=== PATIENT | male | born 1960 | race Caucasian/White ===

== ENCOUNTER 2018-09-15 18:44 | Emergency (ER) | payer OTHER ==
[~2018-09-15] VITALS: Ht 165.1 cm; Wt 66.3 kg
[2018-09-15 18:50] VITALS: BP 130/62
--- NOTE | 2018-09-15 20:08 | NUR ---
PT TAKEN TO BED 4
--- NOTE | 2018-09-15 20:10 | NUR ---
ASSUMED CARE OF PT AT THIS TIME. PT PRESENTS FOR REFILL OF ALBUTEROL. NO RESPIRATORY DISTRESS NOTED...PT SPEAKS IN FULL SENTENCES. PT DENIES ANY OTHER MEDICAL COMPLAINTS AT THIS TIME. AAOX4 WITH EVEN AND STEADY GAIT; PATIENT STATES PAIN OF 0/10; VSS; PATIENT POSITIONED FOR COMFORT; HOB ELEVATED; BEDRAILS UP X2; BED DOWN. ER MD MADE AWARE OF PT STATUS. WILL CONTINUE TO MONITOR.
--- NOTE | 2018-09-15 20:48 | NUR ---
Dr. Villasenor evaluating patient at bedside.
[2018-09-15] MEDS ORDERED: ALBUTEROL SULFATE/IPRATROPIU 3 ML SOL IH ONE (20:55)
--- NOTE | 2018-09-15 21:02 | NUR ---
Respiratory Therapist at bedside for respiratory intervention.
[2018-09-15 21:15] VITALS: BP 132/61
== END 2018-09-15 21:15 | disposition home or self-care (01) ==
LOC: MED 18:44
DX: J45.909 Unspecified asthma, uncomplicated (principal)
CPT/HCPCS: 94640; 94760; 99283; J7620

== ENCOUNTER 2018-12-05 22:25 | Emergency (ER) | payer OTHER ==
[~2018-12-05] VITALS: Ht 167.6 cm; Wt 63.5 kg
[2018-12-05 22:40] VITALS: BP 133/75
--- NOTE | 2018-12-05 22:41 | NUR ---
TO ER BED 8
[2018-12-05] MEDS ORDERED: ALBUTEROL 0.083% 2.5 MG/3 ML NEBU INH ONE ×2 (22:45→23:40)
[2018-12-05] MEDS ORDERED: predniSONE 20 MG TAB PO ONE (22:45)
[2018-12-05] MEDS ORDERED: ALBUTEROL SULFATE/IPRATROPIU 3 ML SOL IH ONE ×2 (22:45→23:40)
--- NOTE | 2018-12-05 23:00 | NUR ---
PT C/O DIFFICULTY BREATHING STARTING AT 5AM THIS MORNING. USED INHALER WITHOUT RELIEF. 98% ON RA. RESPIRATIONS E/U, NO RETRACTIONS NOTED, LUNG SOUNDS CLEAR BILAT THROUGHOUT. NO DIAPHORESIS NOTED.
--- NOTE | 2018-12-06 00:41 | NUR ---
Patient discharged with v/s stable. Written and verbal after care instructions given and explained. Patient alert, oriented and verbalized understanding of instructions. Ambulatory with steady gait. All questions addressed prior to discharge. ID band removed. Patient advised to follow up with PMD. Rx of ALBUTEROL AND PREDNISONE given. Patient educated on indication of medication including possible reaction and side effects. Opportunity to ask questions provided and answered.
[2018-12-06 00:42] VITALS: BP 119/61
== END 2018-12-06 00:42 | disposition home or self-care (01) ==
LOC: MED 22:25
DX: J45.901 Unspecified asthma with (acute) exacerbation (principal); Z98.890 Other specified postprocedural states
CPT/HCPCS: 94640; 94760; 99284; J7512; J7613; J7620

== ENCOUNTER 2019-01-01 21:42 | Emergency (ER) | payer OTHER ==
[~2019-01-01] VITALS: Ht 167.6 cm; Wt 63.5 kg
[2019-01-01 21:59] VITALS: BP_SYST 114; BP_DIAS 2; BP_DIAS 72
--- NOTE | 2019-01-01 22:03 | NUR ---
AMBULATED TO LOBBY WITH VSS. NO RESPIRATORY DISTRESS NOTED AT THIS TIME.
--- NOTE | 2019-01-01 22:32 | NUR ---
PT AMBULATED TO BED 02.
--- NOTE | 2019-01-01 22:40 | NUR ---
58 YO M BIB SELF PRESENTS TO ED C/O SOB SINCE THIS MORNING. PT REPORTS HX OF ASTHMA AND STATES HE TOOK HIS ALBUTEROL INH AT 1430 AND AGAIN AT 2000. HE STATES IT DID NOT HELP AND HE CONTINUES TO FEEL SOB. -- PT IS AWAKE, ALERT, CALM, COOPERATIVE, BEHAVIOR APPROPRIATE. -- SP02: 95% ON RA. SKIN PINK, WARM, DRY. BREATHING EVEN, UNLABORED. -- INSPIRATORY WHEEZES HEARD THROUGHOUT. PMH-- DENIES RX-- ALBUTEROL INH
[2019-01-01] MEDS ORDERED: predniSONE 20 MG TAB PO ONE (23:20)
[2019-01-01] MEDS ORDERED: ALBUTEROL SULFATE/IPRATROPIU 3 ML SOL IH ONE (23:20)
--- NOTE | 2019-01-01 23:30 | NUR ---
RT AT BEDSIDE.
--- NOTE | 2019-01-02 00:10 | NUR ---
PT REPORTS FEELING BETTER AND IMPROVED BREATHING. BREATHING TX AND PREDNISONE EFFECTIVE. LUNGS CTA THROUGHOUT. SP02:97% ON RA.
[2019-01-02 00:20] VITALS: BP 112/67
--- NOTE | 2019-01-02 00:20 | NUR ---
Patient discharged with v/s stable. Written and verbal after care instructions given and explained. Patient alert, oriented and verbalized understanding of instructions. Ambulatory with steady gait. All questions addressed prior to discharge. ID band removed. Patient advised to follow up with PMD in 1-2 days and to return to ER if S/SX worsen. Rx of Albuterol Inh and Prednisone given. Patient educated on indication of medication including possible reaction and side effects. Opportunity to ask questions provided and answered.
== END 2019-01-02 00:20 | disposition home or self-care (01) ==
LOC: MED 21:42
DX: R06.02 Shortness of breath (principal); J45.909 Unspecified asthma, uncomplicated; Z85.46 Personal history of malignant neoplasm of prostate
CPT/HCPCS: 94640; 99283; J7512; J7620

== ENCOUNTER 2019-01-24 06:18 | Emergency (ER) | payer OTHER ==
[~2019-01-24] VITALS: Ht 167.6 cm; Wt 63.5 kg
[2019-01-24 06:22] VITALS: BP 109/64
--- NOTE | 2019-01-24 06:22 | NUR ---
TO BED # 04 AMBULATORY
[2019-01-24] MEDS ORDERED: ALBUTEROL SULFATE/IPRATROPIU 3 ML SOL IH STA (06:30)
--- NOTE | 2019-01-24 06:33 | NUR ---
BIB self reports waking up with SOB, states he tried his rescue inhaler without any help. Wheezing heard in bilater upper lobes. spo2 97% on RA. Patient does not appear to have labored breathing at this time. Sitting up in bed, speaking in full sentences. ermd aware.
--- NOTE | 2019-01-24 06:45 | NUR ---
RT AT BEDSIDE.
--- NOTE | 2019-01-24 07:20 | NUR ---
report given to day shift rnbetito. patient stable at time
--- NOTE | 2019-01-24 07:21 | NUR ---
report recieved from radha steele.
--- NOTE | 2019-01-24 07:25 | NUR ---
respirations even and unlabored. lungs clear bilaterally. pt [id number].
[2019-01-24] MEDS ORDERED: MAG SULF 2000 MG/WATER PREMIX 50 ML IV ONE (07:35)
[2019-01-24] MEDS ORDERED: methylPREDNISolone SS 125 MG/2 ML VIAL IVP ONE (07:35)
[2019-01-24 08:10] LABS: BASOPHILS % (AUTO) 0.4 % (0.0-2.0); EOSINOPHILS # (AUTO) 0.4 K/uL (0-0.4); EOSINOPHILS % (AUTO) 7.6 % (0.0-4.0); HEMATOCRIT 41.9 % (36-52); HEMOGLOBIN 13.9 g/dL (12.0-18.0); LYMPHOCYTES # (AUTO) 1.2 K/uL (2.0-11.5); LYMPHOCYTES % (AUTO) 24.7 % (20.5-51.1); MEAN CORPUSCULAR HEMOGLOBIN 28 pg (27-31); MEAN CORPUSCULAR HGB CONC 33 g/dL (33-37); MEAN CORPUSCULAR VOLUME 85.2 fL (80-94); MONOCYTES # (AUTO) 0.4 K/uL (0.8-1.0); MONOCYTES % (AUTO) 8.7 % (1.7-9.3); NEUTROPHILS # (AUTO) 2.8 K/uL (1.8-7.7); NEUTROPHILS % (AUTO) 58.6 % (42.2-75.2); PLATELET COUNT (AUTO) 348 K/uL (140-450); RED BLOOD CELL COUNT(AUTO) 4.92 MIL/uL (4.20-6.10); WHITE BLOOD COUNT (AUTO) 4.8 K/uL (4.8-10.8)
--- NOTE | 2019-01-24 08:22 | NUR ---
PT PLACED ON PULSE OX. PT 02 AT 99% RA.
[2019-01-24 08:23] LABS: ANION GAP 11.6 (8-16); CARBON DIOXIDE 28.8 mmol/L (21-32); POTASSIUM 4.4 mmol/L (3.5-5.1); PROTHROMBIN TIME 9.7 secs (10.8-13.4)
[2019-01-24 08:47] LABS: D-DIMER < 100 ng/ml (0-400)
[2019-01-24 08:50] LABS: TOTAL BILIRUBIN 0.7 mg/dL (0.0-1.0)
[2019-01-24 08:51] LABS: ALBUMIN 3.5 g/dL (3.4-5.0)
--- NOTE | 2019-01-24 10:17 | NUR ---
PAIN 0/10 AT THIS TIME
[2019-01-24 10:18] VITALS: BP 110/61
--- NOTE | 2019-01-24 10:18 | NUR ---
Patient discharged with v/s stable. Written and verbal after care instructions given and explained. Patient alert, oriented and verbalized understanding of instructions. Ambulatory with steady gait. All questions addressed prior to discharge. ID band removed. Patient advised to follow up with PMD. Rx of azithromycin, albuterol inhalation aerosol, prednisone given. Patient educated on indication of medication including possible reaction and side effects. Opportunity to ask questions provided and answered. pt given excuse from work.
== END 2019-01-24 10:18 | disposition home or self-care (01) ==
LOC: MED 06:18
DX: J44.1 Chronic obstructive pulmonary disease with (acute) exacerbation (principal); Z85.46 Personal history of malignant neoplasm of prostate; Z98.890 Other specified postprocedural states; Z86.718 Personal history of other venous thrombosis and embolism; Z86.711 Personal history of pulmonary embolism
CPT/HCPCS: 36415; 36600; 80053; 82803; 83735; 83880; 84484; 85025; 85379; 85610; 93005; 94640; 96365; 96366; 96375; 99284; J2930; J3475; J7620

== ENCOUNTER 2019-02-10 20:52 | Emergency (ER) | payer OTHER ==
[~2019-02-10] VITALS: Ht 167.6 cm; Wt 63.5 kg
[2019-02-10 20:55] VITALS: BP 120/71
[2019-02-10] MEDS ORDERED: ALBUTEROL SULFATE/IPRATROPIU 3 ML SOL IH ONE ×2 (21:00→22:15)
[2019-02-10] MEDS ORDERED: methylPREDNISolone SS 125 MG/2 ML VIAL IM ONE (21:00)
--- NOTE | 2019-02-10 21:00 | NUR ---
58 YO M BIB SELF PRESENTS TO ED C/O SOB SINCE THIS AM. PT REPORTS HX OF ASTHMA. PT STATES HE USED HIS ALBUTEROL INH X 4 WITH NO IMPROVEMENT. -- PT AWAKE, ALERT, CALM, COOPERATIVE. ANSWERING QUESTIONS APPROPRIATELY WITH AGE APPROPRIATE BEHAVIOR. -- BREATHING EVEN, UNLABORED. CHEST RISE EQUAL, SYMETRICAL. NO RETRACTIVE BREATHING NOTED. NO ACCESSORY MUSCLE USE NOTED. NO NASAL FLARING. SKIN PINK, WARM, DRY. SPO2: 95% ON RA. PMH-- ASTHMA RX-- ALBUTEROL INH NEEDED Addendum: 02/10/19 at 2146 by [facility] -- INSPIRATORY AND EXPIRATORY WHEEZING HEARD THROUGHOUT.
--- NOTE | 2019-02-10 21:15 | NUR ---
RT CALLED FOR BREATHING TX. AWAITING AVAILABLE RT.
--- NOTE | 2019-02-10 21:40 | NUR ---
Respiratory Therapist at bedside for respiratory intervention.
--- NOTE | 2019-02-10 22:15 | NUR ---
INSPIRATORY WHEEZING HEARD THROUGHOUT LUNG STAPLETON. DR. GRACIA NOTIFIED. ORDERS FOR 2ND BREATHING TX RECEIVED.
--- NOTE | 2019-02-10 22:30 | NUR ---
RT AT BEDSIDE.
--- NOTE | 2019-02-10 22:35 | NUR ---
PT STATES HE FEELS BETTER. LUNGS CTA. SP 02: 99% ON RA.
--- NOTE | 2019-02-10 22:39 | NUR ---
Patient discharged with v/s stable. Written and verbal after care instructions given and explained. Patient alert, oriented and verbalized understanding of instructions. Ambulatory with steady gait. All questions addressed prior to discharge. ID band removed. Patient advised to follow up with PMD. Rx of ALBUTEROL AND PREDNISONE WAS given. Patient educated on indication of medication including possible reaction and side effects. Opportunity to ask questions provided and answered. PT STATED HE WAS ABLE TO BREATH WITHOUT DIFFICULTY POST TREATMENTS, PAIN LEVEL 0/10 PRIOR TO D/C
[2019-02-10 22:51] VITALS: BP 119/69
== END 2019-02-10 22:39 | disposition home or self-care (01) ==
LOC: MED 20:52
DX: J45.901 Unspecified asthma with (acute) exacerbation (principal); Z85.46 Personal history of malignant neoplasm of prostate; Z98.890 Other specified postprocedural states
CPT/HCPCS: 94640; 94760; 96372; 99284; J2930; J7620

== ENCOUNTER 2019-02-15 21:46 | Emergency (ER) | payer OTHER ==
[~2019-02-15] VITALS: Ht 167.6 cm; Wt 63.5 kg
[2019-02-15 21:52] VITALS: BP 117/73
--- NOTE | 2019-02-15 21:52 | NUR ---
TO BED # 03 AMBULATORY
--- NOTE | 2019-02-15 21:58 | NUR ---
Amanda langley in [facility] - 02/15/19 at 2158 by DREAD PT TAKEN TO BED 3
--- NOTE | 2019-02-15 22:00 | NUR ---
58 YO MALE COMES TO ED FOR C/O ASTHMA ATTACK. PT STATES HE FELT SOB, USED INHALER X4 AND STILL FELT SOB. PT DENIES CHEST DISCOMFORT @ THIS TIME. PT AAOX4, SITTING UP IN GURNEY. LUNGS SOUNDS WHEEZING THROUGHOUT. ABD SOFT NON DISTENDED. GURNEY LOCKED IN LOWEST POSITION. HX: ASTHMA RX: INHALER
[2019-02-15] MEDS ORDERED: NACL 0.9% 1,000 ML IV ONE (22:20)
[2019-02-15] MEDS ORDERED: MAG SULF 2000 MG/WATER PREMIX 50 ML IV ONE (22:20)
[2019-02-15] MEDS ORDERED: ALBUTEROL SULFATE/IPRATROPIU 3 ML SOL IH ONE (22:20)
[2019-02-15] MEDS ORDERED: methylPREDNISolone SS 125 MG in WATER STERILE 2 ML IV ONE (22:20)
[2019-02-16 00:25] VITALS: BP 117/82
--- NOTE | 2019-02-16 00:25 | NUR ---
DPatient discharged with v/s stable. Written and verbal after care instructions given and explained BY DR ALVAREZ Patient alert, oriented and verbalized understanding of instructions. Ambulatory with steady gait. All questions addressed prior to discharge BY DR ALVAREZ ID band removed. Patient advised to follow up with PMD. Rx of ALBUTEROL, PREDNISONE given. Patient educated on indication of medication including possible reaction and side effects BY DR ALVAREZ Opportunity to ask questions provided and answered.
== END 2019-02-16 00:25 | disposition home or self-care (01) ==
LOC: MED 21:46
DX: J45.901 Unspecified asthma with (acute) exacerbation (principal); Z85.46 Personal history of malignant neoplasm of prostate; Z98.890 Other specified postprocedural states
CPT/HCPCS: 94640; 96365; 96375; 99283; J2930; J3475; J7030; J7620

== ENCOUNTER 2019-12-06 19:31 | Emergency (ER) | payer SELFPAY ==
[~2019-12-06] VITALS: Ht 165.1 cm; Wt 68.0 kg
[2019-12-06 19:36] VITALS: BP 135/93
--- NOTE | 2019-12-06 19:41 | NUR ---
PT TAKEN TO BED 5
--- NOTE | 2019-12-06 20:02 | NUR ---
Dr. Villasenor examining patient.
[2019-12-06] MEDS ORDERED: AMOXIL/CLAVULANATE 500/125 MG 1 TAB PO ONE (20:10)
[2019-12-06] MEDS ORDERED: KETOROLAC 60 MG/2 ML VIAL IM ONE (20:10)
--- NOTE | 2019-12-06 20:10 | NUR ---
PATIENT COMPLAINS OF LEFT MOLAR TOOTH PAIN X 3 WEEKS. PATIENT STATES HE FINISHED HIS PRESCRIPTION FOR Cephalexin AND TODAY HE FINISHED IT BUT HE STILL HAS ALOT OF PAIN IN THE TOOTH. PATIENT AOX4, BREATHING EVEN AND UNLABORED, SKIN WARM AND DRY. BED IN LOWEST POSITION, LOCKED, BED RAIL UPX1. PMH - ASTHMA ALLERGIES - NKA
[2019-12-06 20:40] VITALS: BP 135/93
--- NOTE | 2019-12-06 20:40 | NUR ---
Patient discharged with v/s stable. Written and verbal after care instructions about abscessed tooth given and explained. Patient alert, oriented and verbalized understanding of instructions. Ambulatory with steady gait. All questions addressed prior to discharge. ID band removed. Patient advised to follow up with PMD. Rx of tramadol, motrin, and augmentin given. Patient educated on indication of medication including possible reaction and side effects. Opportunity to ask questions provided and answered.
== END 2019-12-06 20:40 | disposition home or self-care (01) ==
LOC: MED 19:31
DX: K04.7 Periapical abscess without sinus (principal); J45.909 Unspecified asthma, uncomplicated; Z85.46 Personal history of malignant neoplasm of prostate
CPT/HCPCS: 96372; 99283; J1885

== ENCOUNTER 2019-12-07 20:08 | Emergency (ER) | payer SELFPAY ==
[~2019-12-07] VITALS: Ht 162.6 cm; Wt 67.6 kg
[2019-12-07 20:14] VITALS: BP 157/95
--- NOTE | 2019-12-07 20:17 | NUR ---
NEGATIVE COVID SCREEN. PT WEARING MASK. PT AMBULATED TO BED 11 WITH STEADY GAIT.
--- NOTE | 2019-12-07 20:24 | NUR ---
59 YEAR OLD MALE COMPLAINS OF LEFT MOLAR TOOTH PAIN X 2 DAYS. PATIENT IS COMING BACK TO EMERGENCY ROOM FROM PRIOR VISIT DUE TO PAIN AND UNABLE TO MANAGE PAIN PRIOR TO VISIT TO DENTIST TOMORROW. PATIENT AOX4, BREATHING EVEN AND UNLABORED, SKIN WARM AND DRY. BED IN LOWEST POSITION, LOCKED, BED RAIL UPX1. PMH - ASTHMA, PROSTATE CANCER ALLERGIES - NKA
--- NOTE | 2019-12-07 20:24 | NUR ---
PER DR GAONA DOES NOT NEED EKG
--- NOTE | 2019-12-07 20:24 | NUR ---
Dr. Villasenor examining patient.
[2019-12-07] MEDS ORDERED: MORPHINE SULFATE 2 MG/ML SYR IM ONE (20:25)
[2019-12-07 21:20] VITALS: BP 146/80
--- NOTE | 2019-12-07 21:20 | NUR ---
Patient discharged with v/s stable. Written and verbal after care instructions about dental abscess given and explained. Patient alert, oriented and verbalized understanding of instructions. Ambulatory with steady gait. All questions addressed prior to discharge. ID band removed. Patient advised to follow up with PMD. Rx of norco given. Patient educated on indication of medication including possible reaction and side effects. Opportunity to ask questions provided and answered. Patient stated he is going to have his pick him up when he gets out of hospital. Pt understands to not drive or operate heavy machinery with norco
== END 2019-12-07 21:20 | disposition home or self-care (01) ==
LOC: MED 20:08
DX: K08.89 Other specified disorders of teeth and supporting structures (principal); J45.909 Unspecified asthma, uncomplicated; Z85.46 Personal history of malignant neoplasm of prostate
CPT/HCPCS: 96372; 99283; J2270

== ENCOUNTER 2019-12-18 22:24 | Emergency (ER) | payer SELFPAY ==
[~2019-12-18] VITALS: Ht 165.1 cm; Wt 63.5 kg
[2019-12-18 22:38] VITALS: BP 124/62
--- NOTE | 2019-12-18 22:53 | NUR ---
59 Y/O M PRESENTS TO ED C/O TOOTH PAIN 03/29 X 10 DAYS. PT STATES, HIS DENTIST ADVISED HIM TO GET THE TOOTH OUT BUT "DIDN'T WANT TO BECAUSE IT WILL HURT ALOT." PT STATES HIS DENTIST OFFICE IS CLOSED DUE TO PANDEMIC. PT DENIES FEVER, DIFFICULTY SWALLOWING. RR EVEN AND UNLABORED. PT STATES THAT HE HAS BEEN TAKING PAIN MEDICATIONS BUT IT DOES NOT HELP RELIEVE THE PAIN. BED IN LOWEST POSITION, SIDE RAIL UP X1. WILL CONTINUE TO MONITOR. PMH: ASTHMA NKA
--- NOTE | 2019-12-18 23:04 | NUR ---
DR. VIEYRA AT BEDSIDE EVALUATING PT.
[2019-12-18] MEDS ORDERED: IBUPROFEN 600 MG TAB PO ONE (23:25)
[2019-12-18] MEDS ORDERED: PENICILLIN V POTASSIUM 250 MG TAB PO ONE (23:25)
[2019-12-18 23:58] VITALS: BP 131/81
--- NOTE | 2019-12-18 23:59 | NUR ---
Patient discharged with v/s stable. Written and verbal after care instructions given and explained. Patient alert, oriented x4, no complains of any CP or SOB. Pt verbalized understanding of instructions. Ambulatory with steady gait. All questions addressed prior to discharge. ID band removed. Patient advised to follow up with PMD. Rx of penVk, motrin given. Patient educated on indication of medication including possible reaction and side effects. Opportunity to ask questions provided and answered. Sammy Ferreira called for the medication of Pen VK 250 mg po. Pt will d/c thereafter.
== END 2019-12-18 23:59 | disposition home or self-care (01) ==
LOC: MED 22:24
DX: K08.89 Other specified disorders of teeth and supporting structures (principal); J45.909 Unspecified asthma, uncomplicated; Z85.9 Personal history of malignant neoplasm, unspecified
CPT/HCPCS: 99283